=== PATIENT | male | born 1995 | race Caucasian/White ===

== ENCOUNTER 2020-05-15 08:49 | Emergency (ER) | payer OTHER ==
[~2020-05-15] VITALS: Ht 172.7 cm; Wt 63.0 kg
[2020-05-15 08:56] VITALS: BP 127/80
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
--- NOTE | 2020-05-15 09:18 | NUR ---
PA at bedside
[2020-05-15] MEDS ORDERED: DIPHTHERIA-TETANUS ADULT 0.5ML IM-VACC ONE (09:30)
[2020-05-15] MEDS ORDERED: DIPH,PERTUSS(ACELL),TET VAC/PF 0.5 ML IM-VACC ONE (10:15)
[2020-05-15] MEDS ORDERED: IBUPROFEN 600 MG TABLET PO ONE (11:00)
== END 2020-05-15 10:48 | disposition home or self-care (01) ==
LOC: ED 10:37
DX: S01.112A Laceration without foreign body of left eyelid and periocular area, initial encounter (principal); S16.1XXA Strain of muscle, fascia and tendon at neck level, initial encounter; S06.9X1A Unspecified intracranial injury with loss of consciousness of 30 minutes or less, initial encounter; Y04.0XXA Assault by unarmed brawl or fight, initial encounter; Y93.89 Activity, other specified; Y92.410 Unspecified street and highway as the place of occurrence of the external cause; Y99.8 Other external cause status
CPT/HCPCS: 70450; 70486; 72125; 90471; 90714; 99285